=== PATIENT | male | born 1960 | race Caucasian/White ===

== ENCOUNTER 2020-09-26 08:00 | Emergency (ER) | payer OTHER ==
[~2020-09-26] VITALS: Ht 175.3 cm; Wt 78.1 kg
--- NOTE | 2020-09-26 08:18 | NUR ---
ERMD AT BEDSIDE FOR EVALUATION.
--- NOTE | 2020-09-26 08:19 | NUR ---
PATIENT WALKED BACK FROM [facility] WITH CHIEF C/O RIGHT HAND SWELLING. PATIENT REPORTS CUTTING RIGHT HAND A WEEK AGO AND HAD SOME PUS DRAINED AT PCP OFFICE YESTERDAY AND WAS PLACED ON DOXYCYCLINE. PATIENT WOKE UP THIS MORNING AND HIS RIGHT HAND IS SWOLLEN. NADN, SMALL CLOSED WOUND ON PALM OF RIGHT HAND, CMS INTACT, CALL LIGHT WITHIN REACH.
[2020-09-26] MEDS ORDERED: VANCOMYCIN PER PHARMACY MC ONE (08:30)
--- NOTE | 2020-09-26 09:16 | NUR ---
PATIENT SITTING IN GURNEY WATCHING TV, NADN, VSS, CALL LIGHT WITHIN REACH.
[2020-09-26] MEDS ORDERED: VANCOMYCIN 1,600 MG in SODIUM CHLORIDE 0.9% 250 ML IV ONE (09:30)
[2020-09-26 11:20] VITALS: BP 121/84
--- NOTE | 2020-09-26 11:23 | NUR ---
VANCOMYCIN FINISHING, PATIENT TOLERATING WELL, NADN, VSS, WILL DC ONCE VANCOMYCIN COMPLETES.
--- NOTE | 2020-09-26 11:35 | NUR ---
IV removed with tip intact. Patient given discharge instructions and prescription and they have confirmed that they understand the instructions. Patient stable and ambulatory with steady gait from ED to private vehicle.
== END 2020-09-26 11:36 | disposition home or self-care (01) ==
LOC: ED 08:56
DX: L03.114 Cellulitis of left upper limb (principal)
CPT/HCPCS: 96365; 99284; J3370; J7050